=== PATIENT | male | born 1995 | race Caucasian/White ===

== ENCOUNTER → 2020-12-26 13:18 | Outpatient (CLI) | payer OTHER, SELFPAY ==
[2020-12-26] MEDS: COVID-19 VACC #1, MRNA(MOD) 100 MCG/0.5 ML VIAL IM (13:27)
== END ==
PROVIDERS: Family Provider Family Medicine; PCP Family Medicine; Visit Provider Internal Medicine
DX: Z23 Encounter for immunization (principal)
CPT/HCPCS: 0011A; 91301